=== PATIENT | male | born 1990 | race Caucasian/White ===

== ENCOUNTER 2017-02-22 15:40 | Emergency (ER) | payer OTHER ==
[~2017-02-22] VITALS: Ht 182.8 cm; Wt 79.4 kg
[~2017-02-22 15:40] MED LIST: FLAGYL500 MG PO; LEVAQUIN750 M1 PO; LEVOFLOXACIN500 MG PO; MOTRIN800 MG PO
[2017-02-22] MEDS ORDERED: PENICILLIN VK500 MG PO (16:12)
== END 2017-02-22 16:11 | disposition home or self-care (01) ==
LOC: ED 15:40
DX: K04.7 Periapical abscess without sinus (principal)

== ENCOUNTER 2018-12-27 16:01 | Emergency (ER) | payer OTHER ==
[~2018-12-27] VITALS: Ht 182.8 cm; Wt 77.1 kg
[~2018-12-27 16:01] MED LIST changes: +PENICILLIN VK500 MG PO
[2018-12-27] MEDS ORDERED: IBUPROFEN600 MG PO (17:37)
== END 2018-12-27 17:41 ==
LOC: ED 16:01
DX: S52.121A Displaced fracture of head of right radius, initial encounter for closed fracture (principal); S40.011A Contusion of right shoulder, initial encounter; S09.90XA Unspecified injury of head, initial encounter; Z79.2 Long term (current) use of antibiotics; V00.131A Fall from skateboard, initial encounter; Y93.51 Activity, roller skating (inline) and skateboarding; Y92.89 Other specified places as the place of occurrence of the external cause; Y99.8 Other external cause status

== ENCOUNTER → 2020-12-06 | Outpatient (CLI) | payer OTHER ==
[~2020-12-06] MED LIST changes: +IBUPROFEN600 MG PO
== END | disposition home or self-care (01) ==
LOC: COVID19 17:53
PROVIDERS: ATTEND Internal Medicine
DX: Z20.822 Contact with and (suspected) exposure to COVID-19 (principal)